=== PATIENT | female | born 1970 | race Caucasian/White ===

== ENCOUNTER 2018-11-20 07:00 | Outpatient (CLI) | payer OTHER, SELFPAY ==
--- NOTE | 2018-11-20 09:31 | DI.RAD_ITS ---
SYMPTOM/DIAGNOSIS: COUGH, RO5 PA AND LATERAL CHEST: The cardiac and mediastinal contours have a normal appearance. The lungs are well inflated and clear. No infiltrate or effusion is seen. IMPRESSION: Negative chest xray.
== END 2018-11-20 07:20 ==
PROVIDERS: PCP Family Medicine; Visit Provider Specialist/Technologist Athletic Trainer
DX: R05 Cough (principal)
CPT/HCPCS: 71046

== ENCOUNTER 2019-05-07 13:36 | Outpatient (REF) | payer OTHER, SELFPAY | END 2019-05-07 13:56 | LOC: NCHCN 13:36 | PROVIDERS: PCP Family Medicine; Visit Provider Family Medicine | DX: N39.0 Urinary tract infection, site not specified (principal) | CPT/HCPCS: 87077; 87086; 87186 ==

== ENCOUNTER 2020-04-14 13:43 | Outpatient (REF) | payer MEDICAID, SELFPAY ==
--- NOTE | 2020-04-14 09:00 | PAPFT_PTH ---
PATIENT: Renu Hernandez LOC: [facility] U#:[id number] AGE/SX: 49/F ROOM: RE04/14/[address]: Lyndsay Osullivan : 1970 BED: DIS: 04/14/2020 SPEC #: [id number] RECD: 04/15/20 12:48 STATUS: KARTIK REQ #: [id number] NAN: 04/14/20 09:[address]: Lyndsay Osullivan DEPT: [facility] Cytology RECD BY: Angie Castaneda Tissues: 1 - CX/ENDOCX FOR PAP SMEARS Procedures: PAP THIN PREP/UVM Screening HPV DNA PROBE Comments: [id number]
== END 2020-04-14 14:03 ==
LOC: NCHCN 13:43
PROVIDERS: PCP Family Medicine; Visit Provider Family Medicine
DX: Z12.4 Encounter for screening for malignant neoplasm of cervix (principal); Z11.51 Encounter for screening for human papillomavirus (HPV); Z00.00 Encounter for general adult medical examination without abnormal findings; Z01.419 Encounter for gynecological examination (general) (routine) without abnormal findings
CPT/HCPCS: 88142; 87624

== ENCOUNTER 2020-04-19 21:35 | Outpatient (REF) | payer MEDICAID, SELFPAY ==
[2020-04-19 21:43] LABS: Abs Immature Grans 0.02 10^3/uL (0.0-0.06); Absolute Basophil Count 0.03 10^3/uL (0.0-0.2); Absolute Eosinophil Count 0.22 10^3/uL (0.0-0.7); Absolute Lymphocyte Count 2.16 10^3/uL (1.2-3.4); Absolute Monocyte Count 0.43 10^3/uL (0.1-0.8); Absolute Neutrophil Count 3.98 10^3/uL (1.2-6.7); Basophils % 0.4; Eosinophils % 3.2; HCT 42.7 % (36.0-46.0); Immature Grans % 0.3; Lymphocytes % 31.6; MCH 29.6 pg (27.0-33.0); MCHC 32.8 % (32.0-36.0); MCV 90.3 fL (80-95); MPV 9.9 fL (8.0-11.0); Monocytes % 6.3; Neutrophils % 58.2; Nucleated RBC 0 %; Platelet Count 197 10^3/uL (130-400); RBC 4.73 10^6/uL (3.93-5.22); RDW 11.9 % (11.7-14.6); RDW-SD 39.5 fL; WBC 6.84 10^3/uL (4.4-10.8)
== END 2020-04-19 21:55 ==
LOC: NCHCN 21:35
PROVIDERS: PCP Family Medicine; Visit Provider Family Medicine
DX: Z78.0 Asymptomatic menopausal state (principal)
CPT/HCPCS: 85025

== ENCOUNTER 2020-11-25 14:48 | Outpatient (REF) | payer MEDICAID, SELFPAY | END 2020-11-25 14:49 | disposition home or self-care (01) | LOC: NCHCN 14:48 | PROVIDERS: PCP Family Medicine; Visit Provider Family Medicine | DX: R30.0 Dysuria (principal) | CPT/HCPCS: 87077; 87086; 87186 ==

== ENCOUNTER 2021-02-18 16:16 | Outpatient (REF) | payer MEDICAID, SELFPAY ==
[2021-02-18 20:32] LABS: Abs Immature Grans 0.01 10^3/uL (0.0-0.06); Absolute Basophil Count 0.03 10^3/uL (0.0-0.2); Absolute Eosinophil Count 0.18 10^3/uL (0.0-0.7); Absolute Lymphocyte Count 2.12 10^3/uL (1.2-3.4); Absolute Monocyte Count 0.39 10^3/uL (0.1-0.8); Absolute Neutrophil Count 3.68 10^3/uL (1.2-6.7); Basophils % 0.5; Eosinophils % 2.8; HCT 42.2 % (36.0-46.0); HGB 13.8 g/dL (11.2-15.7); Immature Grans % 0.2; Lymphocytes % 33.1; MCH 28.9 pg (27.0-33.0); MCHC 32.7 % (32.0-36.0); MCV 88.3 fL (80-95); MPV 9.9 fL (8.0-11.0); Monocytes % 6.1; Neutrophils % 57.3; Nucleated RBC 0 %; Platelet Count 192 10^3/uL (130-400); RBC 4.78 10^6/uL (3.93-5.22); RDW 11.9 % (11.7-14.6); RDW-SD 38.5 fL; WBC 6.41 10^3/uL (4.4-10.8)
[2021-02-18 20:54] LABS: ALT 24 U/L (14-59); AST 18 U/L (15-37); Albumin 4.3 g/dL (3.4-5.0); Alkaline Phosphatase 153 U/L (46-116); Anion Gap 4.4 mmol/L (3-11); BUN 23 mg/dL (7-18); Bilirubin, Total 0.4 mg/dL (0.2-1.0); CO2 32.6 mmol/L (21.0-32.0); CREATININE 0.8 mg/dL (0.55-1.02); Calcium 9.1 mg/dL (8.5-10.1); Chloride 106 mmol/L (98-107); Glucose 118 mg/dL (74-106); Lipase 149 U/L (73-393); Potassium 4.4 mmol/L (3.5-5.1); Sodium 143 mmol/L (136-145); Total Protein 7.4 g/dL (6.4-8.2)
== END 2021-02-18 16:17 | disposition home or self-care (01) ==
LOC: NCHCN 16:16
PROVIDERS: PCP Family Medicine; Visit Provider Family Medicine
DX: R10.9 Unspecified abdominal pain (principal)
CPT/HCPCS: 80053; 83690; 85025

== ENCOUNTER 2021-06-23 15:17 | Outpatient (REF) | payer MEDICAID, SELFPAY | END 2021-06-23 15:18 | disposition home or self-care (01) | LOC: NCHCN 15:17 | PROVIDERS: PCP Family Medicine; Visit Provider Family Medicine | DX: R30.0 Dysuria (principal) | CPT/HCPCS: 87086 ==

== ENCOUNTER 2021-09-28 18:24 | Outpatient (REF) | payer MEDICAID, SELFPAY ==
[2021-09-28 16:57] LABS: Abs Immature Grans 0.01 10^3/uL (0.0-0.06); Absolute Basophil Count 0.03 10^3/uL (0.0-0.2); Absolute Eosinophil Count 0.21 10^3/uL (0.0-0.7); Absolute Lymphocyte Count 1.86 10^3/uL (1.2-3.4); Absolute Neutrophil Count 3.73 10^3/uL (1.2-6.7); Basophils % 0.5; Eosinophils % 3.4; HCT 42.5 % (36.0-46.0); HGB 13.9 g/dL (11.2-15.7); Immature Grans % 0.2; Lymphocytes % 29.8; MCH 28.7 pg (27.0-33.0); MCHC 32.7 % (32.0-36.0); MCV 87.8 fL (80-95); MPV 9.7 fL (8.0-11.0); Monocytes % 6.4; Neutrophils % 59.7; Nucleated RBC 0 %; Platelet Count 214 10^3/uL (130-400); RBC 4.84 10^6/uL (3.93-5.22); RDW-SD 38.7 fL; WBC 6.24 10^3/uL (4.4-10.8)
[2021-09-28 17:19] LABS: Bilirubin Negative (Negative); Blood Negative (Negative); Clarity Clear (Clear); Glucose Negative (Negative); Ketones Negative (Negative); Leukocyte Esterase Negative (Negative); Nitrite Negative (Negative); Specific Gravity >= 1.030 (1.005-1.025); Urobilinogen 0.2 EU/dL (Up TO 0.2); pH 5.5 (5-8)
[2021-09-28 18:39] LABS: ALT 41 U/L (14-59); AST 24 U/L (15-37); Albumin 4.4 g/dL (3.4-5.0); Alkaline Phosphatase 135 U/L (46-116); Anion Gap 7.2 mmol/L (3-11); BUN 16 mg/dL (7-18); Bilirubin, Total 0.4 mg/dL (0.2-1.0); CO2 29.8 mmol/L (21.0-32.0); CREATININE 0.9 mg/dL (0.55-1.02); Calcium 9.4 mg/dL (8.5-10.1); Chloride 105 mmol/L (98-107); Glucose 87 mg/dL (74-106); Lipase 96 U/L (73-393); Potassium 4.1 mmol/L (3.5-5.1); Sodium 142 mmol/L (136-145); TSH (W/Ref FT4) 1.65 uIU/mL (0.36-3.74); Total Protein 7.6 g/dL (6.4-8.2)
[2021-10-03 13:22] LABS: IgA 212 mg/dL (85-499); Interpretation (See Note); Tissue Transglutaminase IgA <1.2 U/mL (<4.0)
== END 2021-09-28 18:25 | disposition home or self-care (01) ==
LOC: NCHCN 18:24
PROVIDERS: PCP Family Medicine; Visit Provider Family Medicine
DX: R10.9 Unspecified abdominal pain (principal)
CPT/HCPCS: 80053; 82784; 83516; 83690; 81003; 84443; 85025

== ENCOUNTER → 2021-10-26 01:51 | Outpatient (CLI) | payer MEDICAID, SELFPAY ==
--- NOTE | 2021-10-26 | DI.US_ITS ---
Exam(s) US ABDOMEN EXAM: US ABDOMEN CLINICAL HISTORY: ABD PAIN, R10.9 TECHNIQUE: Ultrasound abdomen performed using standard protocol. COMPARISON: No exams were available for comparison FINDINGS: LIVER: Mildly enlarged. Mildly increased echogenicity.. No focal liver lesions are seen.. GALLBLADDER: No evidence of cholelithiasis. No evidence of wall thickening. No pericholecystic fluid identified. ROBB'S SIGN: Negative. BILIARY SYSTEM: No intrahepatic or extrahepatic biliary ductal dilation. KIDNEYS: Kidneys are symmetric in size. No evidence of renal calculi. No evidence of hydronephrosis. No renal mass or cyst identified. PANCREAS: Normal where visualized. SPLEEN: Not enlarged. ABDOMINAL AORTA AND IVC: Visualized portions normal caliber. ASCITES: None seen. IMPRESSION: Mildly enlarged liver with mild fatty infiltration. Normal gallbladder. DATA REPOSITORY:
== END ==
PROVIDERS: PCP Family Medicine; Visit Provider Family Medicine
DX: R10.9 Unspecified abdominal pain (principal); R16.0 Hepatomegaly, not elsewhere classified; K76.0 Fatty (change of) liver, not elsewhere classified
CPT/HCPCS: 76700

== ENCOUNTER 2021-11-02 00:33 | Outpatient (CLI) | payer MEDICAID, SELFPAY ==
--- NOTE | 2021-11-02 08:20 | DI.MAMMO_ITS ---
Exam(s) MAMMO SCREENING EXAM: MAMMO SCREENING CLINICAL HISTORY: SCREENING, Z12.31 TECHNIQUE: Mammograms were interpreted according to the usual protocol including computer analysis w Speek CAD system, tomosynthesis and C-view imaging. COMPARISON: 2014 through 2019 from [facility]. FINDINGS: The breasts are composed of scattered fibroglandular densities, Breast Density category B. No suspicious masses or suspicious microcalcifications are seen. No skin thickening or abnormal axillary lymph nodes are seen. There has been no significant change from prior exams. IMPRESSION: BI-RADS Category 1, Negative mammogram Yearly screening mammography is recommended. Breast Density - Category B, scattered fibroglandular densities. A negative radiographic report should not delay biopsy if a dominant or clinically suspicious mass is present. Up to ten percent of cancers are not identified on mammography. A negative report may reinforce clinical impression. Adenosis and dense breasts may obscure an underlying neoplasm. False positive reports average 6 to 10%. Patient will receive a letter notifying them of these results.
== END 2021-11-02 00:53 ==
PROVIDERS: PCP Family Medicine; Visit Provider Family Medicine
DX: Z12.31 Encounter for screening mammogram for malignant neoplasm of breast (principal)
CPT/HCPCS: 77063; 77067

== ENCOUNTER 2022-01-19 15:43 | Outpatient (REF) | payer MEDICAID, SELFPAY | END 2022-01-19 15:44 | disposition home or self-care (01) | LOC: LBN 15:43 | PROVIDERS: PCP Family Medicine; Visit Provider Nurse Practitioner Family | DX: R30.0 Dysuria (principal) | CPT/HCPCS: 87086 ==

== ENCOUNTER 2022-11-17 15:21 | Outpatient (REF) | payer OTHER, MEDICAID, SELFPAY ==
--- OUTSIDE RECORDS SUMMARY | 2022-11-17 15:24 | XMS_ITS | Continuity of Care Document ---
Author Name Unknown Organization [facility] Ambulatory Clinics Address [address] [place] [address] Care Team Providers Care Patient Carrier Name Role Phone ROBERT CASTRO Primary Care Physician Encounter [facility] NBR [id number] Date(s): 08/31/22 - 08/31/22 [facility] Ambulatory Clinics [address] [place], [place] [address] Encounter Diagnosis Hip pain, left(Discharge Diagnosis) - 08/31/22 Labral tear of left hip joint(Discharge Diagnosis) - 08/31/22 Discharge Disposition: Home or Self Care Attending Physician: Abena Ledesma APRN Allergies, Adverse Reactions, Alerts No Known Allergies Functional Status 08/31/22 Recent Travel History No recent travel Problem List No Known Problems Vital Signs Most recent to oldest [Reference Range]: 1 Peripheral Pulse Rate [60-100 bpm] 62 bp m (08/31/22 9:40 AM) Blood Pressure [90-140/60-90 mmHg] 116/6 8mmHg (08/31/22 9:40 AM) Weight 74.85 kg (08/31/22 9:40 AM) Weight Measured (lbs) 165.016 lb (08/31/22 9:40 AM) Height 172.72 cm (08/31/22 9:40 AM) Height/Length Measured (inches) 68 inch (08/31/22 9:40 AM) BSA Measured 1.9 m2 (08/31/22 9:40 AM) Body Mass Index 25.09 kg/m2 (08/31/22 9:40 AM) Social History Social History Type Response Sex Female Physician Outpatient Note * Abena Ledesma APRN: PERFORM, MODIFY Event Display: Office Clinic Note Physician Authored Date: BEFORERENU :1970 Age:51 years Sex:Female Visit Date:08/31/2022 Primary Care Physician: ROBERT CASTRO Chief Complaint left hip pain /instability History of Present Illness Renu is a well-known patient to this clinic, she has been seen multiple times for this??left hip, left radicular pain, SI joint discomfort.?? Most recently she was evaluated in August of last year, MRI was obtained which showed small labral tear, I sent her for second opinion at [facility] in September 2021.?? They felt that the pain she was having was not coming from the femoral acetabular joint and sent her on to spine at [facility].?? They diagnosed her with pelvic floor??issue, she was sent to physical therapy for that.?? She has also been seen at the spine clinic here at [facility] for SI joint injections which were helpful in the past. ??She is back today for reevaluation. ??She has had multiple??arthrograms with Dr. Ledesma under sedation as she is unable to do those??without sedation, those were helpful in the past.?? She did have new x- rays today. Did PT and it was super helpful, continued to do well, until recently.?? The left hip gives way, last for a few seconds.?? Still doing exercises and stretches.?? Sleeping is an issue, no leg heaviness, butt to posterior thigh. Walking exacerbates it, no numbess or tingling, groin pain.?? She is very concerned that possibly the labral tear has gotten??a bit worse, she states it feels very similar to??last time.?? 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 Review of Systems Constitutional:?No??fevers,?No??chills,?No??sweats Eye:?No??recent visual problems ENT:?No??ear pain,?No??nasal congestion,?No??sore throat Respiratory:?No??shortness of breath,?No??cough Cardiovascular:?No??Chest pain,?No??palpitations,?No??syncope Gastrointestinal:?Nonausea,?No??vomiting,?No??diarrhea Genitourinary:?No??hematuria Ricco/Lymph:?No??bruising tendency,?No??swollen lymph glands Endocrine:?No??excessive thirst,??No??excessive hunger Musculoskeletal:??No??back pain,??No??neck pain,??Positive for??joint pain,??Positive for??muscle pain,??No??decreased range of motion Integumentary:?No??rash,?No??pruritus,?No??abrasions Neurologic: Alert & oriented X 4 Psychiatric:?No??anxiety,?No??depression Physical Exam Vitals & Measurements HR:??62??(Peripheral)?? BP:??116/68?? SpO2:??97%?? HT:??172.72??cm?? WT:??74.85??kg?? BMI:??25.09?? Pain Score:??3?? BSA:??1.9?? General: ??appears stated age, well dressed HEENT: no loss of hearing, normocephalic, EOMs intact Neuro: ??grossly intact, if indicated see specific neurology exam Psych: ??alert and oriented to place and time, pleasant, cooperative Dermatology: ??no gross open areas of skin-see exam of limb for specifics Lymphatics: ??no lymphedema of affected limb Gait: Slightly antalgic with start up Vascular: ??pulses distally of limb are 2+?? Musculoskeletal: Left hip: She is able to fully extend, she is able to flex to 90??internal and external rotation??with slight buttock pain no groin discomfort.?? Heber's test is negative there is significant tenderness to palpation the trochanteric bursa also at??the SI joint, none at the sciatic notch Assessment/Plan 1.??Labral tear of left hip joint??S73.192A Renu and I spent 30 minutes together today with 20 is minutes spent reviewing her history, the fact that she had a small labral tear that she was able to do physical therapy and work through, she had really been doing well until recently, she is now standing a lot at work, having??a lot of up and down out of a chair, she thinks this likely exacerbated it. ??She started to have instability of thehip??almost like a locking sensation.?? We discussed watchful waiting versus MRI versus restarting physical therapy,??at this point she is feeling that the hip is unstable so we will move forward with MRI. ??After that is obtained we will make a more definitive plan of care. ??We are??hoping thatit will be about the same??and possibly physical therapy would settle it down once again.?? I also gave her a work note to try to allow her to sit as much as possible. ??Support was given all of her questions were answered at length today. Hip pain, left??M25.552 Problem List/Past Medical History Ongoing No chronic problems Historical No qualifying data Medications No active medications Allergies No Known Allergies Health Maintenance ?Pending??(in the next year) ?Due?Adult Wellness Exam due?08/31/22?and every 1?years ?Alcohol Use Screening due?08/31/22?and every 1?years ?Breast Cancer Screening due?08/31/22?and every 2?years ?Cervical Cancer Screening due?08/31/22?Variable frequency ?Colorectal Cancer Screening due?08/31/22?Variable frequency ?Depression Screening due?08/31/22?and every 1?years ?Glaucoma Screening due?03/02/23?and every 1?years ?HIV Screening due?08/31/22?and every 1?years ?Hepatitis C Screening due?08/31/22?One-time only ?Lipid Screening due?08/31/22?and every 5?years ?Satisfied??(in the past 1 year) ?Satisfied?Body Mass Index on?08/31/22.?Satisfied by Karyn Patterson ?? Electronically Signed on 08/31/22 01:57 PM Abena Ledesma APRN Patient Care team information Care Team Personnel Name: ROBERT CASTRO Position: No Access Member Role: Primary Care Physician Address: Address: [facility] [address] [place] [address]- Care Team Related Persons Name: NICOLE VALENCIA
--- OUTSIDE RECORDS SUMMARY | 2022-11-17 15:24 | XMS_ITS | Continuity of Care Document ---
Author Name Unknown Organization [facility] Address [address] [place] [address] Care Team Providers Care Internal Communications Specialist Name Role Phone ROBERT CASTRO Primary Care Physician [phone] Encounter [facility] NBR [id number] Date(s): 08/31/22 - 08/31/[address] [address]- Discharge Disposition: Home or Self Care Attending Physician: Abena Ledesma APRN Admitting Physician: Abena Ledesma APRN Referring Physician: Abena Ledesma APRN Allergies, Adverse Reactions, Alerts No Known Allergies Problem List No Known Problems Results Radiology Reports * Exam Date Time Procedure Performing Provider Status 08/31/22 9:21 AM XR Hip 2-3 Views w/AP Pelvis Left Eddie Lewis (Verified) Notes: (XR Hip 2-3 Views w/AP Pelvis Left) Reason For Exam: hip pain XR Hip 2-3 Views w/AP Pelvis Left EXAM DESCRIPTION: XR Hip 2-3 Views w/AP Pelvis Left 08/31/2022 INDICATION: HIP PAIN TECHNIQUE: Pelvis and left hip, three views COMPARISON: 04/06/2021 IMPRESSION: No acute fracture or dislocation. SI joints appear symmetric and pubic symphysis appears intact. No significant hip arthritic changes. Hip joint spaces are well maintained. No focal lytic or sclerotic lesion. JOB #: [id number] Final Signed by: Ronald Rosado MD Signed (Electronic Signature): 08/31/2022 9:36 am Social History Social History Type Response Sex Female XR Pelvis and Hip - right 2 Views * Ronald Rosado MD: VERIFY, VERIFY Event Display: Report EXAM DESCRIPTION: XR Hip 2-3 Views w/AP Pelvis Left 08/31/2022 INDICATION: HIP PAIN TECHNIQUE: Pelvis and left hip, three views COMPARISON: 04/06/2021 IMPRESSION: No acute fracture or dislocation. SI joints appear symmetric and pubic symphysis appears intact. No significant hip arthritic changes. Hip joint spaces are well maintained. No focal lytic or sclerotic lesion. JOB #: [id number] Final Signed by: Ronald Rosado MD Signed (Electronic Signature): 08/31/2022 9:36 am Patient Care team information Care Team Personnel Name: MATTHEW ROBERT Position: No Access Member Role: Primary Care Physician Address: Address: [facility] [address] [place] [address]- Care Team Related Persons Name: NICOLE VALENCIA
--- OUTSIDE RECORDS SUMMARY | 2022-11-17 15:24 | XMS_ITS | Continuity of Care Document ---
Author Name Unknown Organization [facility] Address [address] [place] [id number] Care Team Providers Care City Dispatch Supervisor Name Role Phone ROBERT CASTRO Primary Care Physician Encounter [facility] NBR [id number] Date(s): 09/21/22 - 09/21/[address] [address] Encounter Diagnosis Other sprain of left hip, initial encounter(Final) - Pain in left hip(Final) - Discharge Disposition: Home or Self Care Attending Physician: Abena Ledesma APRN Admitting Physician: Abena Ledesma APRN Allergies, Adverse Reactions, Alerts No Known Allergies Problem List No Known Problems Results Radiology Reports * Exam Date Time Procedure Performing Provider Status 09/21/22 9:34 AM MRI Hip w/o Contrast Left Karson Parsons tt; Auth (Verified) Notes: (MRI Hip w/o Contrast Left) Reason For Exam: eval left hip labral tear MRI Hip w/o Contrast Left EXAM DESCRIPTION: MRI Hip w/o Contrast Left 09/21/2022 INDICATION: EVAL LEFT HIP LABRAL TEAR TECHNIQUE: Multiplanar MRI examination of the left hip including large dlzql-nc-[id number] coronal T1, coronal fast STIR and axial T2-weighted images as well as small jfypc-nu-baca images utilizing PD and fat-suppressed PD technique. COMPARISON: MRI left hip examination from 09/05/2021 and routine radiographs of the left hip from 08/31/2022 FINDINGS: No regional marrow edema to suggest bone contusion or occult fracture. No femoral head AVN. SI joints appear symmetric without significant arthritic changes or sacroiliitis. Pubic symphysis appears intact. No significant hip arthritic changes. No hip joint effusion on either side No abnormal periarticular fluid accumulation to suggest trochanteric or iliopsoas bursitis. No regional muscle edema to suggest strain or myositis. Hamstring tendon origins appear intact bilaterally with no findings to suggest strain or tendinosis. No findings to suggest cam type or pincer type left femoroacetabular impingement syndrome. Normal left hip alpha angle of 40 degrees Tear involving the left anterior-superior acetabular labrum with small adjacent paralabral cyst formation. No significant change from previous study. IMPRESSION: Small tear involving the left anterior-superior acetabular labrum with small adjacent paralabral cyst formation. No significant change from prior study. Otherwise within normal limits. JOB #: [id number] Final Signed by: Ronald Rosado MD Signed (Electronic Signature): 09/21/2022 10:19 am Social History Social History Type Response Sex Female MR Hip - left WO contrast * Ronald Rosado MD: VERIFY, VERIFY Event Display: Report EXAM DESCRIPTION: MRI Hip w/o Contrast Left 09/21/2022 INDICATION: EVAL LEFT HIP LABRAL TEAR TECHNIQUE: Multiplanar MRI examination of the left hip including large zejut-zr-pjdd coronal T1, coronal fast STIR and axial T2-weighted images as well as small [id number]-vq-rcxh images utilizing PD and fat-suppressed PD technique. COMPARISON: MRI left hip examination from 09/05/2021 and routine radiographs of the left hip from 08/31/2022 FINDINGS: No regional marrow edema to suggest bone contusion or occult fracture. No femoral head AVN. SI joints appear symmetric without significant arthritic changes or sacroiliitis. Pubic symphysis appears intact. No significant hip arthritic changes. No hip joint effusion on either side No abnormal periarticular fluid accumulation to suggest trochanteric or iliopsoas bursitis. No regional muscle edema to suggest strain or myositis. Hamstring tendon origins appear intact bilaterally with no findings to suggest strain or tendinosis. No findings to suggest cam type or pincer type left femoroacetabular impingement syndrome. Normal left hip alpha angle of 40 degrees Tear involving the left anterior-superior acetabular labrum with small adjacent paralabral cyst formation. No significant change from previous study. IMPRESSION: Small tear involving the left anterior-superior acetabular labrum with small adjacent paralabral cyst formation. No significant change from prior study. Otherwise within normal limits. JOB #: [id number] Final Signed by: Ronald Rosado MD Signed (Electronic Signature): 09/21/2022 10:19 am Patient Care team information Care Team Personnel Name: ROBERT CASTRO Position: No Access Member Role: Primary Care Physician Address: Address: [facility] [address] [place] [address]- Care Team Related Persons Name: NICOLE VALENCIA Address: Home
--- OUTSIDE RECORDS SUMMARY | 2022-11-17 15:24 | XMS_ITS | Continuity of Care Document ---
Author Name Unknown Organization [facility] Ambulatory Clinics Address [address] [place] [address] Care Team Providers Care Rolling Mill Operator Name Role Phone ROBERT CASTRO Primary Care Physician Encounter [facility] NBR [id number] Date(s): 08/14/22 - 08/14/22 [facility] Ambulatory Clinics [address] [place] [address]- [place] Social History Social History Type Response Sex Female Patient Care team information Care Team Personnel Name: ROBERT CASTRO Position: No Access Member Role: Primary Care Physician Address: Address: [facility] [address] [place], [place] [address]
[2022-11-17 15:55] LABS: Bacteria Few HPF (Negative); C & S Indicated? C&S Done As Ordered; Casts Negative LPF (Negative); Crystals Negative HPF (Negative); Epithelial Cells Few HPF (Negative); Mucus Negative (Negative); RBC 0-2 HPF (0-2)
== END 2022-11-17 15:22 | disposition home or self-care (01) ==
LOC: NCHCN 15:21
PROVIDERS: PCP Family Medicine; Visit Provider Physician Assistant Medical
DX: R30.0 Dysuria (principal)
CPT/HCPCS: 87077; 81015; 87086; 87186

== ENCOUNTER 2023-03-14 11:49 | Outpatient (REF) | payer BC, MEDICAID, SELFPAY ==
[2023-03-14 16:22] LABS: ALT 37 U/L (14-59); AST 23 U/L (15-37); Alkaline Phosphatase 149 U/L (46-116); Anion Gap 4.1 mmol/L (3-11); BUN 18 mg/dL (7-18); Bilirubin, Total 0.5 mg/dL (0.2-1.0); CO2 31.9 mmol/L (21.0-32.0); Calcium 9.1 mg/dL (8.5-10.1); Chloride 104 mmol/L (98-107); Estimated GFR 66.95 (mL/min/1.73m2); Glucose 87 mg/dL (74-106); Potassium 4.7 mmol/L (3.5-5.1); Sodium 140 mmol/L (136-145); Total Protein 7.3 g/dL (6.4-8.2)
[2023-03-14 16:56] LABS: Calculated LDL 110 mg/dL (<100); Cholesterol 196 mg/dL (<200); HDL Cholesterol 66 mg/dL (40-60); Triglyceride 100 mg/dL (<150)
== END 2023-03-14 11:50 | disposition home or self-care (01) ==
LOC: NCHCN 11:49
PROVIDERS: PCP Family Medicine; Visit Provider Family Medicine
DX: Z00.00 Encounter for general adult medical examination without abnormal findings (principal); Z13.220 Encounter for screening for lipoid disorders; Z13.228 Encounter for screening for other metabolic disorders
CPT/HCPCS: 80053; 80061

== ENCOUNTER 2024-01-07 12:47 | Outpatient (REF) | payer BC, MEDICAID, SELFPAY ==
[2024-01-07 19:11] LABS: ALT 25 U/L (14-59); AST 18 U/L (15-37); Albumin 4.1 g/dL (3.4-5.0); Alkaline Phosphatase 158 U/L (46-116); Bilirubin, Total 0.67 mg/dL (0.2-1.0); Calculated LDL 98 mg/dL (<100); Cholesterol 180 mg/dL (<200); HDL Cholesterol 65 mg/dL (40-60); Total Protein 7.2 g/dL (6.4-8.2); Triglyceride 86 mg/dL (<150)
[2024-01-07 19:31] LABS: Bilirubin, Direct 0.2 mg/dL (0.0-0.2)
== END 2024-01-07 12:48 | disposition home or self-care (01) ==
LOC: NCHCN 12:47
PROVIDERS: PCP Family Medicine; Visit Provider Family Medicine
DX: K76.0 Fatty (change of) liver, not elsewhere classified (principal); Z13.220 Encounter for screening for lipoid disorders
CPT/HCPCS: 80061; 80076

== ENCOUNTER 2024-01-09 14:28 | Outpatient (REF) | payer BC, SELFPAY ==
[2024-01-09 16:42] LABS: ALT 26 U/L (14-59); AST 17 U/L (15-37); Albumin 4.1 g/dL (3.4-5.0); Alkaline Phosphatase 153 U/L (46-116); Anion Gap 6.8 mmol/L (3-11); BUN 13 mg/dL (7-18); Bilirubin, Total 0.43 mg/dL (0.2-1.0); CO2 31.2 mmol/L (21.0-32.0); CREATININE 0.7 mg/dL (0.55-1.02); Calcium 9.3 mg/dL (8.5-10.1); Chloride 104 mmol/L (98-107); Estimated GFR 102.07 (mL/min/1.73m2); FREE T4 0.98 ng/dL (0.76-1.46); GGT 31 U/L (5-55); Glucose 85 mg/dL (74-106); Magnesium 2.1 mg/dL (1.8-2.4); Potassium 4.9 mmol/L (3.5-5.1); Sodium 142 mmol/L (136-145); TSH 1.81 uIU/Ml (0.36-3.74); Total Protein 7.4 g/dL (6.4-8.2)
[2024-01-11 10:08] LABS: Parathyroid Hormone,Intact 39 pg/mL (19-88)
== END 2024-01-09 14:29 | disposition home or self-care (01) ==
LOC: NCHCN 14:28
PROVIDERS: PCP Family Medicine; Visit Provider Family Medicine
DX: K76.0 Fatty (change of) liver, not elsewhere classified (principal); E83.42 Hypomagnesemia
CPT/HCPCS: 80053; 82397; 82977; 83735; 83970; 84439; 84443

== ENCOUNTER 2024-01-31 13:32 | Emergency (ER) | payer BC, SELFPAY ==
[2024-01-31 13:41] VITALS: BP 117/78; PULSE 94; RESP 16; TEMP 36.5; O2SAT 98
--- NOTE | 2024-01-31 16:00 | DI.RAD_ITS ---
Exam(s) XR ANKLE RT COMPLETE XR TIB/FIB RT EXAM: XR ANKLE RT COMPLETE and XR tib/fib RT CLINICAL HISTORY: trauma. TECHNIQUE: 2D digital imaging was performed of the right tib/fib and ankle. Five images were obtain ed. AP, lateral and oblique views were obtained. COMPARISON: There are no priors for comparison. FINDINGS: BONES: No acute fracture is present. No bony destructive lesion is seen. There is a small plantar ca lcaneal spur. JOINTS: The ankle mortise is normally aligned. The joint spaces are well maintained. SOFT TISSUE: There is mild edema seen in the soft tissues laterally in the mid lower leg. No radiopa que foreign bodies are identified. IMPRESSION: No acute fracture or dislocation. DATA REPOSITORY: RADIATION DOSE DELIVERED:
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
[2024-01-31] MEDS: Ibuprofen 600 MG TAB PO (17:00)
[2024-01-31 17:15] VITALS: BP 124/86; PULSE 60; RESP 18; O2SAT 99
== END 2024-01-31 17:19 | disposition home or self-care (01) ==
PROVIDERS: Emergency Provider Student in an Organized Health Care Education/Training Program; PCP Family Medicine
DX: S80.811A Abrasion, right lower leg, initial encounter (principal); M25.571 Pain in right ankle and joints of right foot; M79.661 Pain in right lower leg; W10.8XXA Fall (on) (from) other stairs and steps, initial encounter
CPT/HCPCS: 99284; 73590; 73610; 99283

== ENCOUNTER 2024-06-09 10:09 | Outpatient (CLI) | payer BC, SELFPAY ==
--- NOTE | 2024-06-09 | DI.RAD_ITS ---
Exam(s) XR CHEST 2V PA LATERAL EXAM: XR CHEST 2V PA LATERAL CLINICAL HISTORY: Cough x 3 weeks, more productive in last 3-5 days, R05.9. TECHNIQUE: 2D digital imaging was performed. COMPARISON: CR XR CHEST 2V PA LATERAL from 11/20/2018 FINDINGS: 2 views: Heart size is normal. The mediastinum is not widened. Lungs are clear. No infiltrates nor pleural effusions. IMPRESSION: No acute pulmonary findings. DATA REPOSITORY: RADIATION DOSE DELIVERED:
== END 2024-06-09 10:29 ==
PROVIDERS: PCP Family Medicine; Visit Provider Nurse Practitioner Family
DX: R05.9 Cough, unspecified (principal)
CPT/HCPCS: 71046

== ENCOUNTER 2024-07-30 16:57 | Outpatient (REF) | payer BC, SELFPAY | END 2024-07-30 16:58 | disposition home or self-care (01) | LOC: NCHCN 16:57 | PROVIDERS: PCP Family Medicine; Visit Provider Family Medicine | DX: N39.0 Urinary tract infection, site not specified (principal); R82.89 Other abnormal findings on cytological and histological examination of urine | CPT/HCPCS: 87086 ==

== ENCOUNTER 2025-01-06 18:01 | Outpatient (REF) | payer BC, SELFPAY | END 2025-01-06 18:02 | disposition home or self-care (01) | LOC: LBN 18:01 | PROVIDERS: PCP Family Medicine; Visit Provider Nurse Practitioner Family | DX: R30.0 Dysuria (principal) | CPT/HCPCS: 87077; 87086; 87186 ==

== ENCOUNTER 2025-01-20 16:58 | Outpatient (REF) | payer BC, SELFPAY | END 2025-01-20 16:59 | disposition home or self-care (01) | LOC: LBN 16:58 | PROVIDERS: PCP Family Medicine; Visit Provider Nurse Practitioner Family | DX: N30.00 Acute cystitis without hematuria (principal) | CPT/HCPCS: 87086 ==